=== PATIENT | female | born 2000 | race Caucasian/White ===

== ENCOUNTER 2025-08-21 11:26 | Outpatient (AMB) | payer OTHER, SELFPAY ==
--- OUTSIDE RECORDS SUMMARY | 2023-07-20 08:53 | XMS_ITS | Encounter Summary ---
Author Organization Formerly [facility] Address [address] [place] [address] Care Team Providers Care Plastic Surgery Coordinator Name Role Phone Alexandra Ford DO Primary Care Provider + Frantz Lambert MD Unavailable Encounter Details Date Type Department Care Team (Latest Contact Info) Description 07/20/2023 9:53 AM EDT Hospital Encounter [facility] [address] [place] [address] Regurgitation of food Social History Tobacco Use Types Packs/Day Years Used Date Smoking Tobacco: Never Smokeless Tobacco: Never Alcohol Use Standard Drinks/Week Comments Yes 0 (1 standard drink = 0.6 oz pur e alcohol) social Comments Unknown Sex and Gender Information Value Date Recorded Sex Assigned at Female 07/18/2023 9:55 PM EDT Legal Sex Female 7:05 PM EST Gender Identity Not on file Sexual Orientation Not on file documented as of this encounter Progress Notes * Olesya Snell LPN - 07/20/2023 10:00 AM EDT Pt informed per Dr Lmabert, Her barium swallow and upper GI series did not reveal any evidence of a hiatal hernia, Zenker's diverticulum or any obvious reflux. The barium tablet passed easily into herstomach. They did note some mildly prominent gastric folds which is a very nonspecific finding. If her symptoms persist, I would recommend that we proceed with upper endoscopy. Please enter orders for EGD documented in this encounter Plan of Treatment Not on file documented as of this encounter Procedures Procedure Name Priority Date/Time Associated Diagnosis Comments FL UPPER GI SERIES W/O KUB Routine 07/20/2023 10:27 AM EDT Regurgitation of food documented in this encounter Results * FL Upper GI series w/o KUB (07/20/2023 10:27 AM EDT) Anatomical Region Laterality Modality Abdomen Digital Radiogra phy 07/20/2023 10:3 7 AM EDT Impressions 07/20/2023 11:02 AM EDT Mildly prominent gastric folds, possibly representing gastritis. Otherwise unremarkable barium upper GI series with esophagram. Dictated by: Parrish Ann RA Narrative 07/20/2023 11:02 AM EDT CLINICAL INFORMATION: Chronic postprandial regurgitation, globus sensation and dysphagia to solids / liquids. COMPARISON: None. TECHNIQUE: A double contrast upper gastrointestinal series with esophagram was performed with barium and air administered orally under fluoroscopic guidance. FINDINGS: Swallowing: Unremarkable. Esophagus: Normal caliber and motility. No focal abnormalities identified. Gastroesophageal Reflux: None observed despite provocative maneuvers. Stomach: Mildly prominent folds, otherwise unremarkable. Duodenum: Unremarkable. Additional Findings: A 13 mm barium tablet passed readily into the stomach. Fluoroscopy time: 1.3 minutes. Number of images: 22 images and 3 cine series. Procedure Note Haile Tamez MD - 07/20/2023 CLINICAL INFORMATION: Chronic postprandial regurgitation, globus sensationand dysphagia to solids / liquids. COMPARISON: None. TECHNIQUE: A double contrast upper gastrointestinal series with esophagramwas performed with barium and air administered orally under fluoroscopicguidance. FINDINGS: Swallowing: Unremarkable. Esophagus: Normal caliber and motility. No focal abnormalitiesidentified. Gastroesophageal Reflux: None observed despite provocative maneuvers. Stomach: Mildly prominent folds, otherwise unremarkable. Duodenum: Unremarkable. Additional Findings: A 13 mm barium tablet passed readily into thestomach. Fluoroscopy time: 1.3 minutes. Number of images: 22 images and 3 cine series. IMPRESSION: Mildly prominent gastric folds, possibly representing gastritis. Otherwise unremarkable barium upper GI series with esophagram. Dictated by: Parrish Ann RA Frantz Lambert MD IMG FLUOROSCOPY ORDERABLES Final Result documented in this encounter Visit Diagnoses Diagnosis Regurgitation of food documented in this encounter Care Teams Plastic Surgery Coordinator Relationship Specialty Start Date End Date Alexandra Ford DO [address] [place] [address] PCP - General Family Medicine 05/05/23 Frantz Lambert MD [address] [place] [id number] Gastroenterology 05/05/23 documented as of this encounter
--- NOTE | 2025-08-21 11:32 | MHC.PC.OV ---
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 Intake Note: New patient visit Automotive Glass Specialist Required: No Allergies No Known Allergies Allergy (Verified 08/21/25 11:33) Tobacco use date assessed: 08/21/25 Dental Screening Dental Screen Date: 08/21/25 Did you have a dental visit in the last 12 months?: Yes Did you have a dental problem in the last 6 months where you did not have access to dental care?: No Was dental information given to patient?: Patient has dentist HPI 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 She is transferred from [place]. She has no acute concerns today. 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 CV: Blood pressure today in the office is 110/66. She follows in [place] with Cardiology, Dr. Gongora, and is on a 3 year plan. Was last seen with an echo in 2023. States the echo was stable. GI: endoscopy 2022 wnl. Uses famotidine as needed Derm: Follows with Dermatology and [place] and follows every 6 months given her family history of melanoma with her paternal grandfather. No skin changes. Watch [employer] Grinder: Scheduled with Ananda castro hx: maternal grandmother colon ca 51; maternal grandfather lymphoma 70s and melanoma; mother htn; paternal grandmother vascular dementia, mi, breast ca; paternal grandfather chf and t2dm; father hld; sister hypothyroid PFSH Surgical History (Updated 08/21/25 @ 11:42 by Ivy Olmos CMA) H/O nevus excision H/O wisdom tooth extraction Family History (Updated 08/21/25 @ 11:48 by Ivy Olmos CMA) Mother HTN (hypertension) Father High cholesterol Maternal Grandmother HTN (hypertension) Colon cancer Paternal Grandmother Asthma Breast cancer Paternal Grandfather HTN (hypertension) Diabetes Cardiovascular disease Maternal Grandfather Cardiovascular disease Leukemia Lymphoma Social History (Updated 08/21/25 @ 11:48 by Ivy Olmos CMA) Housing: House Alcohol intake: current Patient Tobacco Use Status: Never used Tobacco e-Cigarette/Vaping Use: Never Used Second Hand Smoke Exposure: No service: No Current occupational status: employed Current occupation: PA Current occupational exposures/hazards: No Cognitive needs: No Hearing needs: No Vision needs: Yes (glasses) Questionnaire PHQ-9 Over the last 2 weeks, how often have you been bothered by any of the following problems? 1. Little interest or pleasure in doing things: not at all 2. Feeling down, depressed, or hopeless: not at all 3. Trouble falling or staying asleep, or sleeping too much: not at all 4. Feeling tired or having little energy: not at all 5. Poor appetite or overeating: not at all 6. Feeling bad about yourself - or that you are a failure or have let yourself or your family down: not at all 7. Trouble concentrating on things, such as reading the newspaper or watching television: not at all 8. Moving or speaking so slowly that other people could have noticed. Or the opposite - being so fidgety or restless that you have been moving around a lot more than usual: not at all 9. Thoughts that you would be better off or of hurting yourself in some way: not at all Total score: 0 Depression Screening Interpretation: Negative Depression Screening Done: Yes 44475 - PHQ-9 Billing: Yes Source: Developed by Drs. Rajinder Arroyo, Elza Reinoso, Feliberto Lamb and colleagues, with an educational qian from [employer]. Thrive Questionnaire Date Thrive assessed: 08/21/25 I am a: Patient What is your living situation today?: I have a steady place to live Within the past 12 months, did the food you bought not last and you didn't have the money to get more?: Never true Within the past 12 months, did you worry whether your food would run out before you got money to buy more?: Never true Do you have trouble paying for medicines?: No Do you have trouble getting transportation to medical appointments?: No Do you have trouble paying your heating and electricity bill?: No Do you have trouble taking care of your child, family member or friend?: No Do you have trouble with day-to-day activities such as bathing, preparing meals, shopping, managing finances, etc.?: No Are you currently unemployed and looking for a job?: No Are you interested in more education?: No Please select the resources that you would like help with: None Currently or been in a relationship where the following occur: No concerns reported THRIVE Score: 0 AUDIT C Alcohol Use Questionnaire (AUDIT-C) 1. How often do you have a drink containing alcohol?: Monthly or less 2. How many drinks containing alcohol do you have on a typical day when you are drinking?: 1 or 2 3. How often do you have six or more drinks on one occasion?: Never Total Score: 1 CURTIS-7 AMB Questionnaire CURTIS-7 Feeling nervous, anxious, or on edge: 0 = Not at all Not being able to stop or control worryin = Not at all Worrying too much about different things: 0 = Not at all Trouble relaxin = Not at all Being so restless that it is hard to sit still: 0 = Not at all Becoming easily annoyed or irritable: 0 = Not at all Feeling afraid as if something awful might happen: 0 = Not at all Total CURTIS-7 score (0-4 normal; 5-9 mild; 10-14 moderate; 15-21 severe): 0 Source: Developed by Drs. Rajinder Arroyo, Elza Reinoso, Feliberto Lamb and colleagues, with an educational qian from [employer]. CURTIS-7 Assessment Billing CURTIS-7 Assessment Tool: CURTIS-7 Assessment 62031 Physical exam (Primary Care) Vital Signs: Last Vital Signs Temp 97.9 F 08/21/25 11:33 Pulse 56 08/21/25 11:33 Resp 14 08/21/25 11:33 BP 110/66 08/21/25 11:33 Pulse Ox 100 08/21/25 11:33 Oxygen Delivery Method Room Air 08/21/25 11:33 BMI result Body Mass Index 23.5 Tobacco/Smoking Status: Tobacco use Status Tobacco use date assessed 08/21/25 08/21/25 11:40 Patient Tobacco Use Status Never used Tobacco 08/21/25 11:48 e-Cigarette/Vaping Use Never Used 08/21/25 11:48 PHQ-9: PHQ-9 Score PHQ-9: Total score 0 08/21/25 11:56 Depression Screening Interpretation: Negative Thrive Assessment: Date of Thrive Assessment Date Thrive assessed 08/21/25 08/21/25 11:40 Currently or been in a relationship where the following occur: No concerns reported Const Orientation/consciousness: patient oriented x3 HENMT Ears: hearing grossly normal bilaterally General nose exam: No nasal polyps present Face and sinus: Yes sinuses nontender Mouth: Normal oral and palatal mucosa present Eyes Pupils: Equal, round and reactive pupils present EOM: EOMs intact bilaterally Neck Neck: Yes full ROM and Yes no lymphadenopathy Thyroid: Thyroid normal Lymphatic: no lymphadenopathy noted Chest Chest palpation & inspection: normal inspection of the chest Resp Auscultation: clear to auscultation bilaterally Cardio Rate: regular rate Rhythm: regular rhythm Heart sounds: S1 normal heart sound present and S2 normal heart sound present Peripheral pulses: Peripheral pulses 2+ throughout GI Other: Soft, nontender Inspection: Yes normal to inspection Palpation (GI): Soft to palpation and Other GI palpation findings present (nontender, no cva tenderness) Auscultation: normoactive bowel sounds Rectal Exam - Female: deferred General: Yes no CVA tenderness Back/Spine/Pelvis Other: Nontender Back: no CVA tenderness Skin General skin exam: no rashes or lesions noted Neuro General: patient oriented x3, gait normal and no focal motor deficits Cranial nerves: Yes Equal, round and reactive pupils present Motor exam (neuro): 5/5 motor strength present throughout Sensory Exam: double simultaneous stimulation for sensation normal Coordination: [id number]-[id number]-upro test normal and Romberg test negative Extrem General: Yes normal to inspection and Yes full ROM Psych Affect: normal affect Attitude: cooperative Thought process: Normal thought process present Thought content: Normal thought content present Insight: Good insight present (Psych) Judgement: Good judgement present (Psych) Coding Level of Care Code New Pt Prev Care 18-39yr(16040 Diagnoses Routine general medical examination at health care facility Z00.00 GERD (gastroesophageal reflux disease) K21.9 Mitral valve prolapse I34.1 Additional Codes PHQ-9 - 15359 - PHQ-9 Billing: Yes ([id number]) CURTIS-7 Assessment Billing - CURTIS-7 Assessment Tool: CURTIS-7 Assessment 59488 ([id number]) Assessment & Plan Assessment & Plan (1) Routine general medical examination at health care facility: Code(s): Z00.00 - Encounter for general adult medical examination without abnormal findings Plan: Health maintenance reviewed Labs ordered (2) GERD (gastroesophageal reflux disease): Code(s): K21.9 - Gastro-esophageal reflux disease without esophagitis Category: Medical Plan: well controlled (3) Mitral valve prolapse: Code(s): I34.1 - Nonrheumatic mitral (valve) prolapse Category: Medical Plan: stable Orders: Orders Complete Blood Count Auto Diff Today R53.83 - Other fatigue, Z00.00 - Encounter for general adult medical examination without abnormal findings, Z01.89 - Encounter for other specified special examinations Lipid Panel Today R53.83 - Other fatigue, Z00.00 - Encounter for general adult medical examination without abnormal findings, Z01.89 - Encounter for other specified special examinations TSH reflex Free T4 Today R53.83 - Other fatigue, Z00.00 - Encounter for general adult medical examination without abnormal findings, Z01.89 - Encounter for other specified special examinations UA CC w/rflx Micro + Cult Today R30.0 - Dysuria, R53.83 - Other fatigue, Z00.00 - Encounter for general adult medical examination without abnormal findings, Z01.89 - Encounter for other specified special examinations Microalbumin, Random (w Creat) Today R53.83 - Other fatigue, Z00.00 - Encounter for general adult medical examination without abnormal findings, Z01.89 - Encounter for other specified special examinations Vitamin B12 and Folate Today R53.83 - Other fatigue, Z00.00 - Encounter for general adult medical examination without abnormal findings, Z01.89 - Encounter for other specified special examinations Comprehensive [place]. Panel Fast Today R53.83 - Other fatigue, Z00.00 - Encounter for general adult medical examination without abnormal findings, Z01.89 - Encounter for other specified special examinations Magnesium Today R53.83 - Other fatigue, Z00.00 - Encounter for general adult medical examination without abnormal findings, Z01.89 - Encounter for other specified special examinations
[2025-08-21 11:33] VITALS: BP 110/66; PULSE 56; RESP 14; TEMP 36.6; O2SAT 100; BMI 23.5
--- OUTSIDE RECORDS SUMMARY | 2025-08-21 22:32 | XMS_ITS | Encounter Summary ---
Author Organization [facility] Address [address] [place] [address] Care Team Providers Care Operating Room Tech Name Role Phone Alexandra Ford DO Primary Care Provider + Frantz Lambert MD Unavailable Encounter Details Date Type Department Care Team (Late st Contact Info) Description 07/22/2023 Scanned Document [facility] [address] [place] [address] Gastroenterology, Scan Social History Tobacco Use Types Packs/Day Years [...] on file documented as of this encounter Plan of Treatment Not on file documented as of this encounter Visit Diagnoses Not on filedocumented in this encounter Care Teams Operating Room Tech Relationship Specialty Start Date End Date Alexandra Ford DO [address] [place] [id number] PCP - General Family Medicine 05/05/23 Frantz Lambert MD [address] [place], [place] [id number] Gastroenterology 05/05/23 documented as of this encounter
--- OUTSIDE RECORDS SUMMARY | 2025-08-21 22:32 | XMS_ITS | Clinical Summary ---
Author Organization [facility] Address [address] [place] [address] Care Team Providers Care Utility Bill Complaints Investigator Name Role Phone Alexandra Ford DO Primary Care Provider + Frantz Lambert MD Unavailable Allergies No known active allergies Medications OMEprazole (PriLOSEC) 40 MG capsuleIndicati ons:Esophageal dysphagia Take 1 capsule (40 mg total) by mouth daily. 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 Glaucoma suspect, both eyes 08/18/201506/03 Immunizations Immunization Administration Dates Next Due DTaP, Unspecified 09/21/2000, 9,1999,1998 Hep B, Unspecified 09/21/2000,04/22/2000, 000 Hib 06/30/2000, 9,1999,1998 IPV 09/21/2000,1999,1999 Influenza, Quadrivalent (FLU CELVAX) MDCK, Preservative Free IM 08/12/2019 Influenza, Unspecified 07/17/2020 MMR 06/30/2000 Tdap 09/24/2020 Varicella 03/21/2000 Family History Medical History Relation Name Comments Colon cancer Maternal Grandmother Relation Name Status Comments Maternal Grandmother Social History Tobacco Use Types Packs/Day Years Used Date Smoking Tobacco: Never Smokeless Tobacco: Never Tobacco Cessation:Counseling Given: Not Answered Alcohol Use Standard Drinks/Week Comments Yes 0 (1 standard drink = 0.6 oz pur e alcohol) social Comments Unknown Sex and Gender Information Value Date Recorded Sex Assigned at Female 07/18/2023 9:55 PM EDT Legal Sex Female 7:05 PM EST Gender Identity Not on file Sexual Orientation Not on file Last Filed Vital Signs Vital Sign Reading Time Taken Comments Blood Pressure 120/74 08/17/2023 9:01 AM EST Pulse 60 08/17/2023 9:01 AM EST Temperature 36.6 C (97.9 F) 08/17/2023 9:01 AM EST Respiratory Rate 16 08/17/2023 9:01 AM EST Oxygen Saturation 99% 08/17/2023 9:01 AM EST Inhaled Oxygen Concentration - - Weight 56.7 kg (125 lb) 08/17/2023 9:01 AM EST Height 160 cm (5' 3 ) 08/17/2023 9:01 AM EST Body Mass Index 22.14 08/17/2023 9:01 AM EST Plan of Treatment Health Maintenance Due Date Last Done Comments Hepatitis C Virus Screening 1999 HIV Screening 2012 HPV Vaccines (1 - 3-dose series) 2014 Pneumococcal Vaccine: Pediat marino (0-5 Years) and At-Risk Patients (6 to 49 Years) (1 of 2 - PCV) 2018 Pap Smear (Ages 21-65) 02/17/2025 02/17/2022 Influenza Vaccine 05/03/2025 07/17/2020, 08/12/2019 COVID-19 Vaccine (4 - 2024-2 6 season) 2025 09/30/2021, 11/07/2020, 10/17/2020 DTaP/Tdap/Td Vaccines (6 - T d or Tdap) 09/24/2030 09/24/2020, 09/21/2000, 1999, Additional history exists Hepatitis B Vaccines Completed 09/21/2000, 04/22/2000, 03/21/2000 Procedures Procedure Name Priority Date/Time Associated Diagnosis Comments THINPREP PAP TEST (CREPING MACHINE OPERATOR HELPER) WITH HPV REFLEX, GC/CT Routine 02/17/2022 8:54 AM EDT from Last 3 Months or Most Recently Relevant to Health Maintenance Results * ThinPrep Pap Test (Felt Cutting Machine Operator) with HPV Reflex, GC/CT (02/17/2022 8:54 AM EDT) Report Report [facility] Comment: Final Gynecological Cytology Report ThinPrep Pap Test with HPV Reflex, GC/Chlamydia SPECIMEN ADEQUACY: SATISFACTORY FOR EVALUATION; ENDOCERVICAL/TRANSFORMATION ZONE COMPONENT PRESENT. INTERPRETATION: NEGATIVE FOR INTRAEPITHELIAL LESION OR MALIGNANCY. Electronically Signed: Shyanne Barton CT (ASCP) CLINICAL INFORMATION: LMP: NG Specimen Source: Cervix, Endocervix CPT Codes: 12383 ICD Codes: Z01.419 Other 02/17/2022 8:54 AM EDT 02/18/2022 2:06 AM EDT Jennifer Blair DO LAB AMB PATH/CYTO ORDERABLES Final Result Performing Organization Address City/State/[facility] Co de Phone Number [facility] [address] [place], [place] from Last 3 Months or Most Recently Relevant to Health Maintenance Insurance [facility] INSURANCE IRA [facility] INSURANCE IRA [facility] INSURANCE Care Teams Utility Bill Complaints Investigator Relationship Specialty Start Date End Date Alexandra Ford DO [address] [place] [id number] PCP - General Family Medicine 05/05/23 Frantz Lambert MD [address] [place] [id number] Gastroenterology 05/05/23
--- OUTSIDE RECORDS SUMMARY | 2025-08-21 22:32 | XMS_ITS | Encounter Summary ---
Author Organization [facility] Address [address] [place] [address] Care Team Providers Care Talend Developer Name Role Phone Alexandra Ford DO Primary Care Provider + Frantz Lambert MD Unavailable Encounter Details Date Type Department Care Team (Late st Contact Info) Description 09/14/2023 Scanned Document [facility] [address] [place] [address] Gastroenterology, Scan Social History Tobacco [...] on filedocumented in this encounter Care Teams Talend Developer Relationship Specialty Start Date End Date Alexandra Ford DO [address] [place] [address] PCP - General Family Medicine 05/05/23 Frantz Lambert MD [address] [place], [place] [phone] Gastroenterology 05/05/23 documented as of this encounter
--- OUTSIDE RECORDS SUMMARY | 2025-08-21 22:32 | XMS_ITS | Encounter Summary ---
Author Organization [facility] Address [address] [place] [address] Care Team Providers Care Wildlife Policy Professional Name Role Phone Alexandra Ford DO Primary Care Provider + Frantz Lambert MD Unavailable Encounter Details Date Type Department Care Team (Late st Contact Info) Description 09/14/2023 Scanned Document [facility] [address] [place] [address] Gastroenterology, Scan Social History Tobacco [...] on filedocumented in this encounter Care Teams Wildlife Policy Professional Relationship Specialty Start Date End Date Alexandra Ford DO [address] [place] [phone] PCP - General Family Medicine 05/05/23 Frantz Lambert MD [address] [place], [place] [phone] Gastroenterology 05/05/23 documented as of this encounter
--- OUTSIDE RECORDS SUMMARY | 2025-08-21 22:32 | XMS_ITS | Encounter Summary ---
Author Organization [facility] Address [address] [place] [id number] Care Team Providers Care Chief Design Drafter Name Role Phone Alexandra Ford DO Primary Care Provider + Frantz Lambert MD Unavailable Encounter Details Date Type Department Care Team (Late st Contact Info) Description 08/17/2023 Scanned Document [facility] [address] [place] [address] Frantz Lambert MD [address] [place] [address] Social History Tobacco Use Types Packs/Day Years [...] of this encounter Progress Notes * Olesya Snell, LINER INSERTER - 08/17/2023 9:30 AM EST Pt informed per Dr Lambert, Biopsies from her stomach and esophagus all appeared normal. (I would beglad to speak with her by phone as she lives in [place] if she wants to discuss her symptoms.) Pt best available to take a call after 5pm. [phone] Pt stated she takes the PPI daily 30 min before breakfast, however she does get breakthrough symptoms 4/7 days a week, even as early as 8am and lasts all day. She would like to stay on the PPI and needs a refill, However I did not refill in case you want to make any changes. Please advise. * Olesya Snell LPN - 08/17/2023 9:30 AM EST PPI refilled. Pt informed and would like to discuss results per last message. Her contact number after 5pm is her cell #. [phone] documented in this encounter Plan of Treatment Not on file documented as of this encounter Procedures Procedure Name Priority Date/Time Associated Diagnosis Comments PATHOLOGY REPORT 08/17/2023 12:0 0 AM EST documented in this encounter Results * PATHOLOGY REPORT (08/17/2023 12:00 AM EST) Frantz Lambert MD PATHOLOGY/CYTOLOGY ORDERABLES Fi nal Result documented in this encounter Visit Diagnoses Not on filedocumented in this encounter Care Teams Chief Design Drafter Relationship Specialty Start Date End Date Alexandra Ford DO [address] [place] [id number] PCP - General Family Medicine 05/05/23 Frantz Lambert MD [address] [place] [address] [phone] Gastroenterology 05/05/23 documented as of this encounter
== END 2025-08-21 12:08 | disposition home or self-care (01) ==
LOC: HO.HMCFM 11:27
PROVIDERS: PCP Physician Assistant; Visit Provider Physician Assistant
DX: Z00.00 Encounter for general adult medical examination without abnormal findings (principal); K21.9 Gastro-esophageal reflux disease without esophagitis; I34.1 Nonrheumatic mitral (valve) prolapse

== ENCOUNTER → 2025-08-21 11:26 | Outpatient (BNVA) | payer OTHER, SELFPAY | PROVIDERS: PCP Physician Assistant; Visit Provider Physician Assistant | DX: Z00.00 Encounter for general adult medical examination without abnormal findings (principal); K21.9 Gastro-esophageal reflux disease without esophagitis; I34.1 Nonrheumatic mitral (valve) prolapse | CPT/HCPCS: 96127 ==